=== PATIENT | female | born 1980 | race Caucasian/White ===

== ENCOUNTER 2016-10-06 15:48 | Inpatient (IN) | payer BC ==
[2016-10-14] MEDS ORDERED: LIDOCAINE 1% (PF) 10 MG/ML (30 ML SDV) SQ PRN (06:14)
[2016-10-14] MEDS ORDERED: PENICILLIN G POTASSIUM 5,000,000 UNIT in DEXTROSE 5% IN WATER 100 ML IV STA ×2 (06:14)
[2016-10-14] MEDS ORDERED: TERBUTALINE 1 MG/ML VIAL SQ PRN (06:14)
[2016-10-14] MEDS ORDERED: METHYLERGONOVINE 0.2 MG/ML 1 ML AMP IM PRN (06:14)
[2016-10-14] MEDS ORDERED: OXYTOCIN 10 UNIT/ML 1 ML VIAL IM PRN (06:14)
[2016-10-14] MEDS ORDERED: CARBOPROST TROMETHAMINE 250 MCG/ML 1 ML AMP IM PRN (06:14)
[2016-10-14] MEDS ORDERED: OXYTOCIN 30 UNITS/500 ML NS 30 UNIT in SALINE 1 500ML.BAG IV SCH (06:15)
[2016-10-14] MEDS ORDERED: LACTATED RINGERS 1,000 ML IV SCH (06:15)
[2016-10-14 06:23] VITALS: BMI 32.5
[2016-10-14 06:45] LABS: Basophils % (A) 0 %; CH 33.3; CHCM 34.6; Eosinophils # (A) 0.1 k/uL (0-0.7); Eosinophils % (A) 1 %; HDW 2.36; HGB 12.6 gm/dL (11.4-16.0); Luc # (Auto) 0.32; Luc % (Auto) 4; Lymphocytes # (A) 2.3 k/uL (1.0-4.8); Lymphocytes % (A) 27 %; MCHC 34.1 g/dL (31.0-37.0); MCV 96.7 fL (80.0-100.0); Mean Platelet Volume 9.4; Monocytes # (A) 0.4 k/uL (0-1.0); Monocytes % (A) 5 %; Neutrophils # (A) 5.3 k/uL (1.3-7.7); Neutrophils % (A) 63 %; RBC 3.83 m/uL (3.80-5.40); RDW 12.6 % (11.5-15.5); WBC 8.4 k/uL (3.8-10.6)
--- NOTE | 2016-10-14 09:49 | P.HPOB ---
History of Present Illness H&P Date: 10/14/16 This is a 36-year-old white female 4 para 2012 EDC 10/06/2016 at 41 and one sevenths weeks' gestation. Patient presents today for induction of labor, for postdates with favorable cervix. She admits to irregular mild uterine contractions. She denies vaginal bleeding or fluid leakage. Fetus is been active throughout the . history significant for positive group B strep cultures, blood type O positive, rubella status immune. VDRL testing, hepatitis B surface antigen, Pap smear, gonorrhea and chlamydia cultures, urine culture all negative. One- hour Glucola 87. Current medications vitamins daily. ALLERGIES none known. Past surgical history D&C for miscarriage 2009. Past medical history is significant for bradycardia, and irregular heartbeat, diagnosed in 2002, on no medications and asymptomatic. Social history patient is , she denies smoking alcohol or drug use. On exam this is a pleasant white female, she is 5 foot 2 inches, 178 pounds, pulse on admission 40, respirations 16, blood pressure 139/63. General physical exam is within normal limits. Chest is clear in all patel. Cervix is 3-4 cm, 60-70% effaced, -1 station, vertex, anterior, soft. Artificial amniorrhexis reveals clear fluid. heart tones are in the 140s with frequent accelerations consistent with reactive NST. Impression: 41 and one sevenths weeks intrauterine , here for elective induction with favorable heart tones. Positive group B strep cultures noted. Plan: Penicillin G per hospital protocol. Close maternal and surveillance. Anticipate normal spontaneous vaginal delivery. Past Medical History Past Medical History: No Reported History Additional Past Medical History / Comment(s): Irregualr heart valve History of Any Multi-Drug Resistant Organisms: None Reported Additional Past Surgical History / Comment(s): D &C Past Anesthesia/Blood Transfusion Reactions: No Reported Reaction Past Psychological History: No Psychological Hx Reported Smoking Status: Never smoker Past Alcohol Use History: None Reported Past Drug Use History: None Reported - Past Family History Mother Family Medical History: Cancer Medications and Allergies Home Medications Medication Instructions Recorded Confirmed Type Pnv with Ca,No.72/Iron/FA 1 tab PO ONCE 10/14/16 10/14/16 History [ Plus Tablet] Allergies Allergy/AdvReac Type Severity Reaction Status Date / Time No Known Allergies Allergy Verified 10/14/16 06:10 Exam - Vital Signs Vital signs: Vital Signs Temp Pulse Resp BP Pulse Ox 10/14/16 06:07 96.2 F L 40 L 16 139/63 100 Intake and Output 10/13/16 10/14/16 10/14/16 22:59 06:59 14:59 Intake Total 2.65 Balance 2.65 Intake: Intake, IV Titration 2.65 Amount Oxytocin 30 Units/500 ml 2.65 Ns 30 unit In Saline 1 500ml.bag @ 1 MILLIUNIT/ MIN 1 mls/hr IV .Q24H [facility] Rx#:[id number] Other: Weight 80.739 kg Results Result Diagrams: 10/14/16 06:30
[2016-10-14] MEDS ORDERED: diphenhydrAMINE 50 MG/ML 1 ML VIAL IVP PRN ×2 (09:52)
[2016-10-14] MEDS ORDERED: BENZOCAINE/MENTHOL SPRAY 1 GM/SPRAY AEROSOL TOPICAL PRN (09:52)
[2016-10-14] MEDS ORDERED: diphenhydrAMINE 25 MG CAP PO PRN (09:52)
[2016-10-14] MEDS ORDERED: Acetaminophen-Codeine 300-30mg TAB PO PRN (09:52)
[2016-10-14] MEDS ORDERED: HYDROCORTISONE 2.5% RECTAL CREAM 30 GM TUBE RECTAL PRN (09:52)
[2016-10-14] MEDS ORDERED: LANOLIN CREAM 5 GM TUBE TOPICAL PRN (09:52)
[2016-10-14] MEDS ORDERED: diphenhydrAMINE ELIXIR 25 MG/10 ML CUP PO PRN (09:52)
[2016-10-14] MEDS ORDERED: IBUPROFEN 600 MG TAB PO PRN (09:52)
[2016-10-14] MEDS ORDERED: ACETAMINOPHEN TAB 325 MG TAB PO PRN (09:52)
[2016-10-14] MEDS ORDERED: WITCH HAZEL 1 EACH MED..PAD TOPICAL PRN (09:52)
[2016-10-14] MEDS ORDERED: SIMETHICONE 80 MG CHEWABLE PO PRN (09:52)
[2016-10-14] MEDS ORDERED: ZOLPIDEM 5 MG TAB PO PRN (09:52)
[2016-10-14] MEDS ORDERED: diphenhydrAMINE 50 MG CAP PO PRN (09:52)
--- NOTE | 2016-10-14 09:52 | P.PROBDLV ---
Vaginal Delivery Note - . Vaginal Delivery Note: This is a 36-year-old white female 4 para 2012 EDC the 10/06/16 at 41 and one sevenths weeks' gestation. She presented for induction for postdates . is remarkable for positive group B strep cultures. Patient also has known bradycardia. Please see my dictated history and physical for details. Artificial amniorrhexis revealed clear fluid. Patient was offered but declined option for pain medication. Per hospital protocol. Artificial amniorrhexis revealed clear fluid. She was judged to be completely dilated and therefore began the second stage of labor. Perineal body was prepped and draped in usual sterile fashion. With excellent maternal expulsive efforts, and 2 pushes, the 's head delivered occiput anterior and he restituted accordingly. There was no nuchal cord noted. The right or anterior shoulder was delivered easily from underneath the pubic symphysis at which time the oropharynx, nasopharynx, and external nares were bulb suctioned on the perineal body. Patient was officially delivered of a liveborn male at 0911 hours. Umbilical cord was doubly clamped and ligated, he was handed to waiting nurses for evaluation where scores of 8 and 9 at one and 5 minutes respectively were given. Infant weighed 6 lbs. 14 oz. or 3180 g. Placenta was delivered spontaneously, it was inspected and noted to be intact with trivascular cord at 0912 hours. At this time the perineal body was redraped. Inspection of the cervix, vagina, perineum and periurethral areas revealed a small first-degree midline perineal laceration. This is repaired in the usual fashion using 3-0 Vicryl suture. All sponge needle and enhancement counts are correct at the end of the procedure. Patient and her are requesting circumcision further son. Please note that one dose of penicillin G had been given in the first stage of labor, pediatricians aware. A similar blood loss 250 mL's.
[2016-10-14] MEDS ORDERED: PENICILLIN G POTASSIUM 2,500,000 UNIT in DEXTROSE 5% IN WATER 100 ML IV SCH ×2 (11:00)
[2016-10-14] MEDS: SENNOSIDES-DOCUSATE SODIUM 1 EACH TAB PO SCH (20:25)
--- NOTE | 2016-10-15 07:04 | P.PN ---
Subjective Principal diagnosis: day #1 Slept well. Minimal pain. Moderate lochia rubra. No complaints Objective - Vital Signs Vital signs: Vital Signs Temp 98.2 F 10/15/16 00:00 Pulse 42 L 10/15/16 00:00 Resp 14 10/15/16 00:00 BP 104/57 10/15/16 00:00 Pulse Ox 99 10/15/16 00:00 Intake & Output 10/14/16 10/15/16 10/15/16 18:59 06:59 18:59 Intake Total 702.65 Balance 702.65 Intake: Intake, IV Titration 102.65 Amount Oxytocin 30 Units/500 ml 102.65 Ns 30 unit In Saline 1 500ml.bag @ 1 MILLIUNIT/ MIN 1 mls/hr IV .Q24H [facility] Rx#:[id number] Oral 600 Other: # Voids 1 2 - Constitutional General appearance: Present: average body habitus, cooperative - EENT Eyes: Present: PERRLA ENT: Present: hearing grossly normal - Neck Neck: Present: normal ROM Carotids: bilateral: upstroke normal Thyroid: bilateral: normal size - Respiratory Respiratory: bilateral: CTA - Cardiovascular Rhythm: regular - Gastrointestinal General gastrointestinal: Present: normal bowel sounds - Integumentary Integumentary: Present: normal - Neurologic Neurologic: Present: CNII-XII intact - Musculoskeletal Musculoskeletal: Present: gait normal, strength equal bilaterally - Psychiatric Psychiatric: Present: A&O x's 3, appropriate affect, intact judgment & insight - Labs CBC & Chem 7: 10/14/16 06:30 Assessment and Plan Plan: Doing well. Circumcision today. Infant to stay for additional lab testing, therefore patient will be discharged home tomorrow. Time with Patient: Less than 30
[2016-10-15] MEDS: SENNOSIDES-DOCUSATE SODIUM 1 EACH TAB PO SCH (21:45)
[2016-10-16 00:42] VITALS: PULSE 32
--- NOTE | 2016-10-16 07:12 | P.DS ---
Providers Date of admission: 10/14/16 06:03 Expected date of discharge: 10/16/16 Attending physician: Janice Gastelum Primary care physician: Stated None Hospital Course: This is a 36-year-old female 4 para 2011 who presented at 41 and one sevenths weeks for induction. She was noted to be in early spontaneous labor. She progressed well through labor and went on to deliver a liveborn male with scores of 8 and 9 at one and 5 minutes respectively. He weighed 6 lbs. 14 oz. or 3 120 g. Please see my dictated delivery note for details. Today the patient is doing well. She is voiding, and dilating and passing flatus without difficulty. Vital signs are stable and she is afebrile. Fundus is firm and in the midline, breast-feeding is going well, breasts are not engorged, perineal body is clean and dry. There is minimal to moderate lochia rubra. Infant is doing well, circumcision has been performed. Patient is being discharged home today in very good condition. She will follow- up with the office in 6 weeks. I have reminded her no intercourse, tampons or douching. She will use aayb-ywa-ygzrobe ibuprofen products as needed for pain. She has a breast pump at home. She will continue taking her vitamins daily. I have asked her to call me with any fevers shakes or chills, foul smelling or copious lochia, with the passage of large blood clots, or indeed with any difficulties or concerns. She and her are contemplating her options for contraception and we will discuss this further in the office. Plan - Discharge Summary Discharge Medication List Pnv with Ca,No.72/Iron/FA [ Plus Tablet] 1 tab PO ONCE 10/14/16 [History ] Follow up Appointment(s)/Referral(s): Janice Gastelum MD [STAFF PHYSICIAN] - 6 Weeks Discharge Disposition: HOME SELF-CARE
[2016-10-16 08:13] VITALS: BP 138/64; RESP 16; TEMP 98.5
[2016-10-16] MEDS: SENNOSIDES-DOCUSATE SODIUM 1 EACH TAB PO SCH (08:44)
== END 2016-10-16 14:31 | disposition home or self-care (01) | DRG 775 ==
LOC: 4FBP 10-14 06:03
PROVIDERS: ADMIT Obstetrics & Gynecology; ATTEND Obstetrics & Gynecology
PROC: 10E0XZZ Delivery of Products of Conception, External Approach (ICD-10-PCS; principal; 2016-10-14)
PROC: 3E033VJ Introduction of Other Hormone into Peripheral Vein, Percutaneous Approach (ICD-10-PCS; principal; 2016-10-14)
PROC: 0HQ9XZZ Repair Perineum Skin, External Approach (ICD-10-PCS; principal; 2016-10-14)
PROC: 10907ZC Drainage of Amniotic Fluid, Therapeutic from Products of Conception, Via Natural or Artificial Opening (ICD-10-PCS; principal; 2016-10-14)
DX: O48.0 Post-term pregnancy (principal); O99.824 Streptococcus B carrier state complicating childbirth; Z37.0 Single live birth; Z3A.41 41 weeks gestation of pregnancy; O70.0 First degree perineal laceration during delivery
CPT/HCPCS: 85025; 88307

== ENCOUNTER → 2018-02-27 | Outpatient (CLI) | payer BC | END | disposition home or self-care (01) | LOC: LABWHC1 08:38 | PROVIDERS: ATTEND Obstetrics & Gynecology | DX: O02.1 Missed abortion (principal) | CPT/HCPCS: 36415; 84702 ==

== ENCOUNTER → 2018-03-20 | Outpatient (CLI) | payer BC | END | disposition home or self-care (01) | LOC: LABWHC1 08:14 | PROVIDERS: ATTEND Obstetrics & Gynecology | DX: O02.1 Missed abortion (principal) | CPT/HCPCS: 36415; 84702 ==

== ENCOUNTER → 2018-08-09 | Outpatient (CLI) | payer BC ==
--- NOTE | 2018-08-09 07:53 | MM ---
Reason for exam: screening (asymptomatic). Baseline mammogram. History: Took hormonal contraceptives beginning at age 22. Physical Findings: Nurse did not find any significant physical abnormalities on exam. MG Screening Mammo w CAD Bilateral CC and MLO view(s) were taken. The breast tissue is heterogeneously dense. This may lower the sensitivity of mammography. There is no discrete abnormality. Medial skin calcification on the right. These results were verbally communicated with the patient and result sheet given to the patient on 08/09/18. ASSESSMENT: Negative, BI-RAD 1 RECOMMENDATION: Routine screening mammogram of both breasts at age 41. (unless clinical indication to start sooner)
== END | disposition home or self-care (01) ==
LOC: RADMAMWWP 06:49
PROVIDERS: ATTEND Obstetrics & Gynecology
DX: Z12.31 Encounter for screening mammogram for malignant neoplasm of breast (principal)
CPT/HCPCS: 77067

== ENCOUNTER → 2021-12-18 | Outpatient (CLI) | payer BC ==
--- NOTE | 2021-12-19 08:18 | MM ---
Reason for Exam: Screening (asymptomatic). Last mammogram was performed 3 year(s) and 4 month(s) ago. Patient History: Menarche at age 14. First Full-Term at age 30. Hormonal Contraceptives, from age 22 until age 37. Risk Values: Cecelia 5 year model risk: 0.6%. NCI Lifetime model risk: 11.1%. Prior Study Comparison: 08/09/2018 Bilateral Screening Mammogram, [facility]. Tissue Density: The breast tissue is heterogeneously dense. This may lower the sensitivity of mammography. Findings: Analyzed By CAD. There is no suspicious group of microcalcifications or new suspicious mass in either breast. Overall Assessment: Negative, BI-RAD 1 Management: Screening Mammogram of both breasts in 1 year. A clinical breast exam by your physician is recommended on an annual basis and results should be correlated with mammographic findings. Electronically signed and approved by: Alf Santana M.D. Radiologis
== END | disposition home or self-care (01) ==
LOC: RADMAMWWP 14:27
PROVIDERS: ATTEND Obstetrics & Gynecology
DX: Z12.31 Encounter for screening mammogram for malignant neoplasm of breast (principal)
CPT/HCPCS: 77067

== ENCOUNTER → 2023-02-20 | Outpatient (CLI) | payer BC ==
--- NOTE | 2023-02-24 08:38 | MM ---
Reason for Exam: Screening (asymptomatic). Last mammogram was performed 1 year(s) and 3 month(s) ago. Patient History: Menarche at age 14. First Full-Term at age 30. Hormonal Contraceptives, from age 22 until age 37. Last menstrual period: 02/06/2023 Risk Values: Cecelia 5 year model risk: 0.7%. NCI Lifetime model risk: 11.0%. Prior Study Comparison: 08/09/2018 Bilateral Screening Mammogram, [facility]. 12/18/2021 Bilateral MG screening mammo w CAD, [facility]. Tissue Density: There are scattered fibroglandular densities. Findings: Analyzed By CAD. There is no suspicious group of microcalcifications or new suspicious mass. Overall Assessment: Negative, BI-RAD 1 Management: Screening Mammogram of both breasts in [address] [facility] will attempt to contact patient to return for supplemental views and ultrasound if indicated. Patient should continue monthly self-breast exams. A clinical breast exam by your physician is recommended on an annual basis. This exam should not preclude additional follow-up of suspicious palpable abnormalities. Note on Cecelia scores and lifetime risk: 1. A Cecelia score greater than 3% is considered moderate risk. If this is the case, consider specialist referral to assess eligibility for a risk reducing agent. 2. If overall lifetime risk for the development of breast cancer is 20% or higher, the patient may qualify for future screening with alternating mammogram and breast MRI. Electronically signed and approved by: Ramon Watters DO
== END | disposition home or self-care (01) ==
LOC: RADMAMWWP 08:06
PROVIDERS: ATTEND Obstetrics & Gynecology
DX: Z12.31 Encounter for screening mammogram for malignant neoplasm of breast (principal)
CPT/HCPCS: 77063; 77067

== ENCOUNTER → 2023-07-06 | Outpatient (CLI) | payer BC ==
[2023-07-06 15:56] LABS: Basophils # (A) 0.02 X 10*3/uL (0.00-0.10); Basophils % (A) 0.4 %; Eosinophils # (A) 0.12 X 10*3/uL (0.04-0.35); Eosinophils % (A) 2.5 %; HCT 37.1 % (37.2-46.3); HGB 12.1 g/dL (12.0-15.0); Lymphocytes # (A) 1.88 X 10*3/uL (0.90-5.00); Lymphocytes % (A) 38.6 %; MCH 31.5 pg (27.0-32.0); MCHC 32.6 g/dL (32.0-37.0); MCV 96.6 FL (80.0-97.0); Mean Platelet Volume 11.3 FL (9.5-12.2); Monocytes # (A) 0.37 X 10*3/uL (0.20-1.00); Monocytes % (A) 7.6 %; NRBC Per 100 WBC 0 X 10*3/uL (0.00-0.01); Neutrophils # (A) 2.47 X 10*3/uL (1.80-7.70); Neutrophils % (A) 50.7 %; Platelet Count 233 X 10*3/uL (140-440); RBC 3.84 X 10*6/uL (4.10-5.20); RDW 11.4 % (11.5-14.5); WBC 4.87 X 10*3/uL (4.50-10.00)
[2023-07-06 17:01] LABS: ALT 10 U/L (8-44); AST 13 U/L (13-35); Albumin 4.2 g/dL (3.8-4.9); Albumin/Globulin Ratio 1.83 Ratio (1.60-3.17); Alkaline Phosphatase 46 U/L (41-126); BUN/Creat Ratio 21.86 Ratio (12.00-20.00); Blood Urea Nitrogen 15.3 mg/dL (9.0-27.0); Calcium 9.2 mg/dL (8.7-10.3); Carbon Dioxide 25.3 mmol/L (21.6-31.8); Chloride 102 mmol/L (96-109); Chol/HDL Ratio 4.37 Ratio; Globulin 2.3 g/dL (1.6-3.3); Glucose 100 mg/dL (70-110); LDL Cholesterol,Calculated 147.8 mg/dL (0.0-131.0); Magnesium 1.9 mg/dL (1.5-2.4); Potassium 4.3 mmol/L (3.5-5.5); Sodium 138 mmol/L (135-145); Total Bilirubin 0.5 mg/dL (0.3-1.2); Total Protein 6.5 g/dL (6.2-8.2); VLDL Calculation 11.14 mg/dL (5.00-40.00)
== END | disposition home or self-care (01) ==
LOC: LABWHC1 09:18
PROVIDERS: ATTEND Internal Medicine
DX: Z00.00 Encounter for general adult medical examination without abnormal findings (principal); I49.3 Ventricular premature depolarization; R20.2 Paresthesia of skin
CPT/HCPCS: 36415; 80053; 80061; 82607; 82746; 83735; 84443; 85025; 86038

== ENCOUNTER → 2024-06-21 | Outpatient (CLI) | payer BC ==
--- NOTE | 2024-06-23 17:37 | MM ---
Reason for Exam: Screening (asymptomatic). Last mammogram was performed 1 year(s) and 3 month(s) ago. Patient History: Menarche at age 14. First Full-Term at age 30. Hormonal Contraceptives, from age 22 until age 37. Risk Values: Cecelia 5 year model risk: 0.7%. NCI Lifetime model risk: 10.9%. Prior Study Comparison: 08/09/2018 Bilateral Screening Mammogram, [facility]. 12/18/2021 Bilateral MG screening mammo w CAD, [facility]. 02/20/2023 Bilateral MG 3D screening mammo w/cad, [facility]. Tissue Density: There are scattered areas of fibroglandular density. Findings: Analyzed By CAD. The pattern is symmetrical. No significant interval change No suspicious groups of microcalcifications, spiculated or lobular masses, architectural distortion or other secondary signs of malignancy are mammographically apparent. Overall Assessment: Benign, BI-RAD 2 Management: Screening Mammogram of both breasts in 1 year. A negative mammogram report should not preclude additional follow up of suspicious palpable abnormalities. Patient should continue monthly self breast exam. A clinical breast exam by your physician is recommended on an annual basis and results should be correlated with mammographic findings. Note on Cecelia scores and lifetime risk: 1. A Cecelia score greater than 3% is considered moderate risk. If this is the case, consider specialist referral to assess eligibility for a risk reducing agent. 2. If overall lifetime risk for the development of breast cancer is 20% or higher, the patient may qualify for future screening with alternating mammogram and breast MRI. [facility], , 06/23/2024 5:34 PM. Electronically signed and approved by: Nicanor Krishna D.O. Radiologis
== END | disposition home or self-care (01) ==
LOC: RADMAMWWP 09:32
PROVIDERS: ATTEND Obstetrics & Gynecology
DX: Z12.31 Encounter for screening mammogram for malignant neoplasm of breast (principal); R92.323 Mammographic fibroglandular density, bilateral breasts
CPT/HCPCS: 77063; 77067